=== PATIENT | male | born 1990 | race Caucasian/White ===

== ENCOUNTER 2018-05-02 06:12 | Inpatient (IN) | payer MEDICAID ==
[~2018-05-02] VITALS: Ht 182.9 cm; Wt 1009.1 kg
[2018-05-02] VITALS (10 sets, daily range): BP systolic 115–153; BP diastolic 70–95
[2018-05-02] MEDS ORDERED: VALIUM5 MG PO (06:18)
[2018-05-02] MEDS ORDERED: NEURONTIN800 MG PO (06:18)
[2018-05-02] MEDS ORDERED: ADDERALL 20 MG20 M1 PO (06:19)
[2018-05-02 07:07] LABS: ALBUMIN 4.1 g/dL (3.4-5.0); ALKALINE PHOSPHATASE 89 U/L (46-116); ALT (SGPT) 205 U/L (10-68); AMYLASE - SERUM 64 U/L (25-115); BILIRUBIN - TOTAL 0.78 mg/dL (0.2-1.3); CALC OSMOLALITY 280 mosm/kg (275-300); CALCIUM 9.2 mg/dL (8.5-10.1); CARBON DIOXIDE 26.2 mmol/L (21.0-32.0); CHLORIDE - SERUM 101 mmol/L (98-107); CREATININE - SERUM 1.1 mg/dL (0.6-1.3); GLUCOSE 142 mg/dL (74-106); LIPASE 137 U/L (73-393); POTASSIUM - SERUM 3.9 mmol/L (3.5-5.1); SODIUM 140 mmol/L (136-145); UREA NITROGEN 12 mg/dL (7-18); eGFR NON AFRICAN AMERICAN 85 mL/min (90-120)
--- NOTE | 2018-05-02 07:10 | NUR ---
PT CARE ASSUMED AT THIS TIME, THE PATIENT IS CURRENTLY BEING TRANSPORTED TO RADIOLOGY VIA WHEELCHAIR IN STABLE CONDITION, RESPIRATIONS EVEN AND UNLABORED, ALERT AND ORIENTED.
[2018-05-02 07:15] LABS: BASOPHILS 0.1 % (0-2); EOSINOPHILS 0.5 % (0-7); HEMATOCRIT 49.9 % (42.0-54.0); HEMOGLOBIN 17.6 g/dL (13.5-17.5); IMMATURE GRANULOCYTES 0.5 % (0-5); LYMPHOCYTES 4.9 % (15-50); MCH 30.9 pg (26.0-34.0); MCHC 35.3 g/dL (31.0-37.0); MCV 87.7 fL (80.0-100.0); MEAN PLATELET VOLUME 12.1 fL (7.4-10.4); MONOCYTES 6.9 % (2-11); NEUTROPHILS 87.1 % (40-80); PLATELET COUNT 157 10x3/uL (130-400); RBC 5.69 10x6/uL (4.20-6.10); RDW 12.5 % (11.5-14.5); WBC 12.8 10x3/uL (4.8-10.8)
[2018-05-02 07:38] LABS: APPEARANCE CLEAR (CLEAR); BILIRUBIN NEGATIVE (NEGATIVE); COLOR YELLOW (YELLOW); GLUCOSE NEGATIVE (NEGATIVE); KETONE NEGATIVE (NEGATIVE); NITRITE NEGATIVE (NEGATIVE); PROTEIN NEGATIVE (NEGATIVE); SPECIFIC GRAVITY 1.005 (1.005-1.020); UROBILINOGEN NORMAL (NORMAL)
--- NOTE | 2018-05-02 10:05 | NUR ---
MEFOXIN INFUSION COMPLETE AT THIS TIME.
--- NOTE | 2018-05-02 12:02 | NUR ---
[address] MAGALLANES FOR UPDATE THAT MORPHINE GIVEN TO PT WAS NOT HELPING AND NEEDED SOMETHING ELSE FOR PAIN. T.O. FOR MORPHINE 2 MG IV ONE TIME FOR BREAKTHROUGH PAIN AND CONT WITH PRN ORDERS PER EMAR.
--- NOTE | 2018-05-02 13:00 | NUR ---
[facility] CALLED TO REPORT PT WILL BE NPO AFTER MIDNIGHT AND NO PAIN MEDS AFTER MIDNIGHT
--- NOTE | 2018-05-02 16:50 | NUR ---
CHANGE IN POC WITH NUCLEAR MED. NPO AT 0200 AND NO PAIN MEDS AFTER 0400
--- NOTE | 2018-05-02 16:59 | NUR ---
DR SHORE CALLED PER PT TEMP 103.3 AND PT C/O FEELING COLD AND DIZZINESS AT PRESENT TIME. PT STABLE WITH EQUAL NON LABORED RR.
--- NOTE | 2018-05-02 18:16 | NUR ---
CEFOXITIN INFUSION COMPLETED AT 181
--- NOTE | 2018-05-02 18:23 | NUR ---
FOOD TRAY (CLEAR LIQUID) PROV TO PT.
--- NOTE | 2018-05-02 19:57 | NUR ---
FLU SWAB OBTAINED AND SENT TO LAB. PT TOLERATED WELL.
--- NOTE | 2018-05-02 20:13 | NUR ---
PT PROVIDED LEMON BURNS PAIUTE SODA AND JELLO PER REQUEST. PT ON CLEAR LIQUID DIET UNTIL 0200. PT ALERT, ORIENTED. NO S/S OF ACUTE DISTRESS NOTED AT THIS TIME.
--- NOTE | 2018-05-02 21:05 | NUR ---
PT RESTING ON BED, NO S/S OF ACUTE DISTRESS NOTED.
--- NOTE | 2018-05-02 22:40 | NUR ---
PT FAMILY AT BEDSIDE. PT DENIES NEEDS AT THIS TIME.
[2018-05-03] VITALS: BP 107/48
[2018-05-03 00:01] VITALS: BP 128/76; Ht 182.9 cm; Wt 1009.1 kg
[2018-05-03 04:16] VITALS: BP 121/72
[2018-05-03 04:52] LABS: BASOPHILS 0.2 % (0-2); EOSINOPHILS 2.7 % (0-7); HEMATOCRIT 45.4 % (42.0-54.0); HEMOGLOBIN 15.2 g/dL (13.5-17.5); IMMATURE GRANULOCYTES 0.4 % (0-5); LYMPHOCYTES 27.6 % (15-50); MCHC 33.5 g/dL (31.0-37.0); MEAN PLATELET VOLUME 11.8 fL (7.4-10.4); NEUTROPHILS 53.1 % (40-80); RBC 5.06 10x6/uL (4.20-6.10); RDW 12.4 % (11.5-14.5)
[2018-05-03 05:04] LABS: MCV 89.7 fL (80.0-100.0); PLATELET COUNT 113 10x3/uL (130-400); WBC 4.5 10x3/uL (4.8-10.8)
[2018-05-03 05:06] LABS: ALBUMIN 3.1 g/dL (3.4-5.0); ALKALINE PHOSPHATASE 61 U/L (46-116); BILIRUBIN - TOTAL 0.94 mg/dL (0.2-1.3); CALCIUM 7.6 mg/dL (8.5-10.1); CARBON DIOXIDE 28.9 mmol/L (21.0-32.0); CHLORIDE - SERUM 105 mmol/L (98-107); CREATININE - SERUM 1.2 mg/dL (0.6-1.3); GLUCOSE 96 mg/dL (74-106); LIPASE 92 U/L (73-393); POTASSIUM - SERUM 3.7 mmol/L (3.5-5.1); PROTEIN - SERUM 6.2 g/dL (6.4-8.2); SODIUM 142 mmol/L (136-145); eGFR NON AFRICAN AMERICAN 77 mL/min (90-120)
[2018-05-03 05:23] LABS: ALT (SGPT) 132 U/L (10-68); AMYLASE - SERUM 47 U/L (25-115); CALC OSMOLALITY 280 mosm/kg (275-300); UREA NITROGEN 7 mg/dL (7-18)
--- NOTE | 2018-05-03 08:00 | NUR ---
REPORT RECEIVED AND CARE ASSUMED. LYING IN BED WITH EYES CLOSED. AROUSED AND DENIES PAIN AT THIS TIME. NPO FOR PIPIDA SCAN. IV PATENT. CONTINUE TO MONITOR.
[2018-05-03 08:15] LABS: INR 1.01 (0.85-1.17); PROTIME 12.8 SECONDS (11.6-15.0)
--- NOTE | 2018-05-03 09:41 | NUR ---
PIPIDA SCAN CANCWELLED PER DR. SHORE AND CHANGED TO CT SCAN OF ABDOMEN. TO MEDICAL IMAGING VIA STRETCHER.
--- NOTE | 2018-05-03 10:06 | NUR ---
RETURNED TO ROOM FROM CAT SCAN
[2018-05-03] MEDS ORDERED: LEVOFLOXACIN500 MG PO (10:42)
--- NOTE | 2018-05-03 11:45 | NUR ---
DR. MAGALLANES HERE TO SEE PATIENT IN EMERGENCY DEPT.
--- NOTE | 2018-05-03 14:00 | NUR ---
DISCHARGE PACKET GIVEN TO PATIENT AND REVIEWED. SANDWICH TRAY GIVEN TO PATIENT PRIOR TO DISCHARGE. PATIENT CALLED HIS TO PICK HIM UP. ASKED PATIENT TO SIT IN WAITING ROOM TO WAIT FOR .
== END 2018-05-03 14:00 | disposition home or self-care (01) | DRG 392 ==
LOC: D.ER 06:12 → D.EDHOLD 09:15
PROVIDERS: Emergency Medicine; Family Medicine; ADMIT Surgery
DX: R10.9 Unspecified abdominal pain (principal); E87.2 Acidosis; R74.0 Nonspecific elevation of levels of transaminase and lactic acid dehydrogenase [LDH]; R00.0 Tachycardia, unspecified; R11.2 Nausea with vomiting, unspecified; R50.9 Fever, unspecified

== ENCOUNTER → 2018-05-13 14:48 | Outpatient (CLI) | payer MEDICAID ==
[2018-05-03 00:01] VITALS: BMI 301.9
[~2018-05-13 14:48] MED LIST: ADDERALL 20 MG20 M1 PO; LEVOFLOXACIN500 MG PO; NEURONTIN800 MG PO; VALIUM5 MG PO
== END | disposition home or self-care (01) ==
LOC: D.NM 14:48
DX: R10.9 Unspecified abdominal pain (principal)

== ENCOUNTER 2019-03-07 19:18 | Emergency (ER) | payer MEDICAID ==
[~2019-03-07] VITALS: Ht 182.9 cm; Wt 102.3 kg
[2019-03-07 19:31] VITALS: Ht 182.9 cm; Wt 102.3 kg
[2019-03-07] MEDS ORDERED: LEXAPRO5 MG PO (19:33)
[2019-03-07] MEDS ORDERED: ADDERALL XR 3030 MG PO (19:33)
[2019-03-07] MEDS ORDERED: AZELASTINE137 MCG/0. NASAL (19:35)
[2019-03-07] MEDS ORDERED: RANITIDINE HCL150 M1 PO (19:35)
[2019-03-07] MEDS ORDERED: OMEPRAZOLE20 M1 PO (19:36)
[2019-03-07] MEDS ORDERED: ULTRAM50 MG PO (21:18)
[2019-03-07 21:45] VITALS: BP 145/94
== END 2019-03-07 21:45 | disposition home or self-care (01) ==
LOC: D.ER 19:18
DX: S29.012A Strain of muscle and tendon of back wall of thorax, initial encounter (principal); X58.XXXA Exposure to other specified factors, initial encounter; Y93.9 Activity, unspecified; Y92.9 Unspecified place or not applicable; M62.838 Other muscle spasm